=== PATIENT | male | born 1960 | race Caucasian/White ===

== ENCOUNTER 2023-12-22 18:14 | Inpatient (IN) | payer OTHER, MEDICAID ==
[2023-12-21] MEDS: NOREPINEPHRINE BITARTRATE 4 MG in NS 246 ML IV ONE (21:00)
[~2023-12-22] VITALS: Ht 170.2 cm; Wt 58.3 kg
[2023-12-22 18:15] VITALS: BP_SYST 0; PULSE 0; RESP 0; TEMP 97.1; O2SAT 0
[2023-12-22 18:56] LABS: BASOPHILS # (AUTO) 0.3 K/uL (0.0-0.2); BASOPHILS % (AUTO) 0.9 % (0.0-2.0); EOSINOPHILS # (AUTO) 0.2 K/uL (0.0-0.4); EOSINOPHILS % (AUTO) 0.5 % (0.0-4.0); HEMATOCRIT 43.6 % (36-54); HEMOGLOBIN 14.3 g/dL (14.0-18.0); LYMPHOCYTES # (AUTO) 5.1 K/uL (1.0-5.5); LYMPHOCYTES % (AUTO) 17.9 % (20.5-51.5); MEAN CORPUSCULAR HEMOGLOBIN 31 pg (27-31); MEAN CORPUSCULAR HGB CONC 33 % (32-36); MEAN CORPUSCULAR VOLUME 94 fL (79.0-98.0); MONOCYTES # (AUTO) 0.7 K/uL (0.0-1.0); MONOCYTES % (AUTO) 2.6 % (1.7-9.3); NEUTROPHILS # (AUTO) 22.1 K/uL (1.8-7.7); NEUTROPHILS % (AUTO) 78.1 % (40.0-70.0); PLATELET COUNT (AUTO) 344 K/uL (130-430); RED BLOOD CELL COUNT(AUTO) 4.63 MIL/uL (4.2-6.2); RED CELL DISTRIBUTION WIDTH 13.3 % (9.0-15.0); WHITE BLOOD COUNT (AUTO) 28.4 K/uL (4.8-10.8)
[2023-12-22] MEDS: NACL 0.9% 1,000 ML IV ONE (18:59)
[2023-12-22] MEDS: SODIUM BICARBONATE 0.5 MEQ/ML VIAL INJ ONE (18:59)
[2023-12-22] MEDS ORDERED: NOREPINEPHRINE BITARTRATE 4 MG in NS 246 ML IV ONE (19:00)
[2023-12-22 19:16] LABS: ALANINE AMINOTRANSFERASE 159 U/L (12-78); ALBUMIN 2.1 g/dL (3.4-4.8); ANION GAP 19 (5-15); ASPARTATE AMINOTRANSFERASE 247 U/L (10-37); CALCIUM 11.5 mg/dL (8.4-11.0); CARBON DIOXIDE 22 mmol/L (23-29); CHLORIDE 110 mmol/L (98-107); CREATININE 0.66 mg/dL (0.55-1.30); GFR AFRICAN AMERICAN 157 mL/min (>90); GFR NON AFRICAN-AMERICAN 130 mL/min (>90); GLUCOSE 126 mg/dL (74-106); POTASSIUM 3.3 mmol/L (3.5-5.1); SODIUM SERUM 151 mmol/L (136-145); TOTAL BILIRUBIN 1.4 mg/dL (0.0-1.0); TOTAL PROTEIN, SERUM 6.5 g/dL (6.4-8.3); UREA NITROGEN, BLOOD 27 mg/dL (8-21)
[2023-12-22] MEDS ORDERED: NOREPINEPHRINE 4 MG/4 ML VIAL IV ONE (19:29)
[2023-12-22 19:31] LABS: BILIRUBIN,DIRECT 0.9 mg/dL (0.0-0.3); LIPASE 24 U/L (16-77)
[2023-12-22] MEDS ORDERED: SODIUM BICARBONATE 8.4% JECT 50 MEQ/50 ML SYRINGE ONE (20:00)
[2023-12-22] MEDS ORDERED: EPINEPHrine JECT 0.1 MG/ML SYR ONE (20:00)
[2023-12-22] MEDS ORDERED: ATROPINE SULFATE 1 MG/10 ML SYRINGE IVP ONE (20:00)
[2023-12-22 20:07] LABS: BLOOD GAS PH 7.405 (7.350-7.450)
[2023-12-22 20:08] LABS: BLOOD GAS BASE EXCESS -1.1 mmol/L (-2.0-3.0); BLOOD GAS HCO3 23.3 mmol/L (21.0-28.0)
[2023-12-22] MEDS ORDERED: MIDAZOLAM IN NACL,ISO-OSMOT/PF 100 ML IV PRN (20:15)
[2023-12-22] MEDS ORDERED: MORPHINE 2 MG/ML INJ. SYRINGE IVP PRN ×2 (20:30)
[2023-12-22] MEDS ORDERED: MUPIROCIN 2% TOPICAL OINTMENT 22 GM NS PRN (20:30)
[2023-12-22] MEDS ORDERED: MAGNESIUM SULFATE 50 ML IV PRN (20:30)
[2023-12-22] MEDS ORDERED: ONDANSETRON HCL 4 MG/2 ML VIAL IVP PRN (20:30)
[2023-12-22] MEDS ORDERED: ZOLPIDEM TARTRATE 5 MG TABLET PO PRN (20:30)
[2023-12-22] MEDS ORDERED: LORazepam 2 MG/ML VIAL IVP PRN (20:30)
[2023-12-22] MEDS ORDERED: DOCUSATE SODIUM 100 MG CAPSULE PO PRN (20:30)
[2023-12-22] MEDS ORDERED: ACETAMINOPHEN 500 MG TABLET PO PRN ×3 (20:45)
[2023-12-22 21:00] VITALS: BP_SYST 135; PULSE 118; RESP 15; TEMP 97.7; O2SAT 98
[2023-12-22 21:27] LABS: BILIRUBIN,URINE NEGATIVE (NEGATIVE); BLOOD, URINE 2+ (NEGATIVE); CLARITY/URINE CLEAR (CLEAR); COLOR,URINE YELLOW (YELLOW); GLUCOSE,URINE NEGATIVE (NEGATIVE); KETONES,URINE 2+ (NEGATIVE); LEUKOCYTE ESTERASE ,URINE NEGATIVE (NEGATIVE); NITRITE, URINE NEGATIVE (NEGATIVE); PROTEIN URINE 2+ (NEGATIVE)
[2023-12-22 22:00] VITALS: BP_SYST 117; PULSE 110; RESP 15; O2SAT 100
[2023-12-22] MEDS ORDERED: PROPOFOL DRIP 100 ML IV PRN (22:15)
[2023-12-22 22:17] LABS: BACTERIA,URINE RARE /HPF (None Seen); WBC,URINE 0-3 /HPF (0-3)
[2023-12-22] MEDS: PROPOFOL DRIP 100 ML IV ONE (22:29)
[2023-12-22 22:34] VITALS: BP_SYST 97; PULSE 111; O2SAT 98
[2023-12-22] MEDS: 0.45% NACL 1,000 ML IV SCH (22:36)
[2023-12-22 22:42] VITALS: BP_SYST 97; PULSE 111
[2023-12-22 23:00] VITALS: BP_SYST 117; RESP 15; O2SAT 97
[2023-12-23] VITALS (41 sets, daily range): BP systolic 86–117; PULSE 92–114; RESP 10–17; TEMP 96.6–101; O2SAT 94–99
[2023-12-23] MEDS: PIPERACILLIN/TAZOBACTAM 2.25 GM VIAL IV ONE (00:41)
[2023-12-23] MEDS: CLINDAMYCIN 600 mg/50mL D5W 50 ML IV ONE (00:41)
[2023-12-23] MEDS: CLINDAMYCIN PHOSPHATE 300 MG/2 ML VIAL IV ONE (02:27)
[2023-12-23] MEDS: PIPERACILLIN/TAZOBACTAM 2.25 GM in NS 50 ML IV SCH (03:00)
[2023-12-23] MEDS: HEPARIN SODIUM,PORCINE 5,000 UNITS/ML VIAL SUBCUT SCH (06:18)
[2023-12-23 06:27] LABS: BASOPHILS % (AUTO) 0.1 % (0.0-2.0); HEMOGLOBIN 12.9 g/dL (14.0-18.0); LYMPHOCYTES # (AUTO) 1.6 K/uL (1.0-5.5); LYMPHOCYTES % (AUTO) 6.7 % (20.5-51.5); MEAN CORPUSCULAR HEMOGLOBIN 31 pg (27-31); MEAN CORPUSCULAR HGB CONC 33 % (32-36); MEAN CORPUSCULAR VOLUME 92 fL (79.0-98.0); MONOCYTES # (AUTO) 0.6 K/uL (0.0-1.0); MONOCYTES % (AUTO) 2.8 % (1.7-9.3); NEUTROPHILS # (AUTO) 21.3 K/uL (1.8-7.7); NEUTROPHILS % (AUTO) 90.4 % (40.0-70.0); PLATELET COUNT (AUTO) 297 K/uL (130-430); RED BLOOD CELL COUNT(AUTO) 4.22 MIL/uL (4.2-6.2); RED CELL DISTRIBUTION WIDTH 12.9 % (9.0-15.0); WHITE BLOOD COUNT (AUTO) 23.5 K/uL (4.8-10.8)
[2023-12-23 07:11] LABS: ALBUMIN 1.8 g/dL (3.4-4.8); BILIRUBIN,DIRECT 0.8 mg/dL (0.0-0.3); CALCIUM 8.6 mg/dL (8.4-11.0); CREATININE 0.34 mg/dL (0.55-1.30); TOTAL BILIRUBIN 1.2 mg/dL (0.0-1.0); TOTAL PROTEIN, SERUM 5.6 g/dL (6.4-8.3)
[2023-12-23 07:30] LABS: POTASSIUM 2.9 mmol/L (3.5-5.1)
[2023-12-23] MEDS ORDERED: PIPERACILLIN/TAZO 4.5 GM in D5W 100 ML IV SCH (08:00)
[2023-12-23] MEDS ORDERED: D5/0.45 NS 1,000 ML IV SCH (08:00)
[2023-12-23 08:31] LABS: INR 1.3 (0.80-1.20); PROTHROMBIN TIME 14.1 SECS (9.5-12.5)
[2023-12-23 08:46] LABS: THYROID STIMULATING HORMONE 0.29 uIu/mL (0.36-3.74)
[2023-12-23] MEDS ORDERED: *HEPARIN PER PHARMACY XX PRN (10:15)
[2023-12-23] MEDS: D5/0.45 NS 1,000 ML IV SCH (11:28)
[2023-12-23] MEDS: ENOXAPARIN SODIUM 40 MG/0.4 ML SYRINGE SUBCUT SCH (11:28)
[2023-12-23] MEDS: PANTOPRAZOLE SODIUM 40 MG/VIAL (PROTONIX) IVP ONE (11:29)
[2023-12-23] MEDS: KCL 40 mEq in 100 mL (PREMIX) 100 ML IV ONE ×2 (11:30→15:04)
[2023-12-23] MEDS: NOREPINEPHRINE BITARTRATE 8 MG in NS 242 ML IV PRN (11:39)
[2023-12-23] MEDS ORDERED: HEPARIN SODIUM,PORCINE 2000 UNITS/0.4 ML BOLUS IVP PRN (11:45)
[2023-12-23] MEDS ORDERED: HEPARIN SODIUM,PORCINE 3000 UNITS/0.6 ML BOLUS IVP PRN (11:45)
[2023-12-23] MEDS: metroNIDAZOLE 250 mg/NS 50 ML IV SCH (13:39)
[2023-12-23] MEDS: PIPERACILLIN/TAZO 3.375 GM in D5W 50 ML IV SCH (15:04)
[2023-12-23] MEDS ORDERED: iohexoL 350 mgI/mL, 100 ML INFUS..BTL IV ONE (17:27)
[2023-12-23] MEDS: HEPARIN SODIUM,PORCINE 5,000 UNITS/ML VIAL IV ONE (18:13)
[2023-12-23] MEDS: HEPARIN 25,000 UNITS in 250 ML PREMIX IV PRN (18:19)
[2023-12-24] VITALS (37 sets, daily range): BP systolic 95–122; PULSE 97–126; RESP 13–17; TEMP 97.2–99.2; O2SAT 98–100
[2023-12-24 00:58] LABS: INFLUENZA TYPE A Negative (NEGATIVE); INFLUENZA TYPE B NEGATIVE (NEGATIVE)
[2023-12-24] MEDS: DOXYCYCLINE HYCLATE 100 MG TABLET PO SCH (03:00)
[2023-12-24 06:29] LABS: BASOPHILS % (AUTO) 0.1 % (0.0-2.0); HEMATOCRIT 40.2 % (36-54); HEMOGLOBIN 13.3 g/dL (14.0-18.0); LYMPHOCYTES # (AUTO) 2.1 K/uL (1.0-5.5); LYMPHOCYTES % (AUTO) 10.7 % (20.5-51.5); MEAN CORPUSCULAR HEMOGLOBIN 31 pg (27-31); MEAN CORPUSCULAR HGB CONC 33 % (32-36); MEAN CORPUSCULAR VOLUME 92 fL (79.0-98.0); MONOCYTES # (AUTO) 0.8 K/uL (0.0-1.0); MONOCYTES % (AUTO) 4.3 % (1.7-9.3); NEUTROPHILS # (AUTO) 16.5 K/uL (1.8-7.7); NEUTROPHILS % (AUTO) 84.9 % (40.0-70.0); PLATELET COUNT (AUTO) 258 K/uL (130-430); RED BLOOD CELL COUNT(AUTO) 4.36 MIL/uL (4.2-6.2); RED CELL DISTRIBUTION WIDTH 13.6 % (9.0-15.0); WHITE BLOOD COUNT (AUTO) 19.5 K/uL (4.8-10.8)
[2023-12-24 06:33] LABS: ALBUMIN 1.8 g/dL (3.4-4.8); BILIRUBIN,DIRECT 0.5 mg/dL (0.0-0.3); CALCIUM 8.4 mg/dL (8.4-11.0); CREATININE 0.36 mg/dL (0.55-1.30); POTASSIUM 3.4 mmol/L (3.5-5.1); TOTAL BILIRUBIN 0.8 mg/dL (0.0-1.0); TOTAL PROTEIN, SERUM 5.8 g/dL (6.4-8.3)
[2023-12-24 07:07] LABS: HEPATITIS A AB, IgM Negative (Negative); HEPATITIS B CORE AB, IgM Negative (Negative); HEPATITIS B SURFACE AG Negative (Negative); HEPATITIS C VIRUS AB Non Reactive (Non Reactive)
[2023-12-24] MEDS: PEG 400/HYPROMELLOSE/GLYCERIN 15 ML DROPS OP SCH (08:53)
[2023-12-24] MEDS: PANTOPRAZOLE SODIUM 40 MG/VIAL (PROTONIX) IVP SCH (08:54)
[2023-12-24] MEDS: NS 500 ML IV ONE (09:00)
[2023-12-25] VITALS (36 sets, daily range): BP systolic 99–115; PULSE 64–96; RESP 15–18; TEMP 97.2–98.6; O2SAT 97–100
[2023-12-25 06:57] LABS: BASOPHILS % (AUTO) 0.1 % (0.0-2.0); EOSINOPHILS # (AUTO) 0.1 K/uL (0.0-0.4); EOSINOPHILS % (AUTO) 0.5 % (0.0-4.0); HEMATOCRIT 35.7 % (36-54); HEMOGLOBIN 11.6 g/dL (14.0-18.0); LYMPHOCYTES # (AUTO) 1.6 K/uL (1.0-5.5); LYMPHOCYTES % (AUTO) 12.3 % (20.5-51.5); MEAN CORPUSCULAR HEMOGLOBIN 30 pg (27-31); MEAN CORPUSCULAR HGB CONC 33 % (32-36); MEAN CORPUSCULAR VOLUME 92 fL (79.0-98.0); MONOCYTES # (AUTO) 0.5 K/uL (0.0-1.0); MONOCYTES % (AUTO) 3.8 % (1.7-9.3); NEUTROPHILS % (AUTO) 83.3 % (40.0-70.0); PLATELET COUNT (AUTO) 223 K/uL (130-430); RED BLOOD CELL COUNT(AUTO) 3.87 MIL/uL (4.2-6.2); RED CELL DISTRIBUTION WIDTH 13.3 % (9.0-15.0); WHITE BLOOD COUNT (AUTO) 13.2 K/uL (4.8-10.8)
[2023-12-25 07:01] LABS: ALBUMIN 1.6 g/dL (3.4-4.8); BILIRUBIN,DIRECT 0.4 mg/dL (0.0-0.3); CALCIUM 7.6 mg/dL (8.4-11.0); CREATININE 0.29 mg/dL (0.55-1.30); TOTAL BILIRUBIN 0.8 mg/dL (0.0-1.0); TOTAL PROTEIN, SERUM 5.2 g/dL (6.4-8.3)
[2023-12-25 08:14] LABS: POTASSIUM 2.6 mmol/L (3.5-5.1)
[2023-12-25] MEDS: POTASSIUM CHLORIDE 20 MEQ TABLET.ER PO PRN (09:18)
[2023-12-25] MEDS: BALSAM PERU/CASTOR OIL 56.7 GM OINT...G. TP SCH (09:18)
[2023-12-26] VITALS (36 sets, daily range): BP systolic 97–127; PULSE 63–77; RESP 15–18; TEMP 97.5–98.9; O2SAT 97–100
[2023-12-26 06:09] LABS: BASOPHILS % (AUTO) 0.1 % (0.0-2.0); EOSINOPHILS # (AUTO) 0.3 K/uL (0.0-0.4); EOSINOPHILS % (AUTO) 2.5 % (0.0-4.0); HEMATOCRIT 36.4 % (36-54); LYMPHOCYTES # (AUTO) 2.2 K/uL (1.0-5.5); LYMPHOCYTES % (AUTO) 19.1 % (20.5-51.5); MEAN CORPUSCULAR HEMOGLOBIN 30 pg (27-31); MEAN CORPUSCULAR HGB CONC 33 % (32-36); MEAN CORPUSCULAR VOLUME 92 fL (79.0-98.0); MONOCYTES # (AUTO) 0.7 K/uL (0.0-1.0); MONOCYTES % (AUTO) 6.2 % (1.7-9.3); NEUTROPHILS # (AUTO) 8.3 K/uL (1.8-7.7); NEUTROPHILS % (AUTO) 72.1 % (40.0-70.0); PLATELET COUNT (AUTO) 210 K/uL (130-430); RED BLOOD CELL COUNT(AUTO) 3.98 MIL/uL (4.2-6.2); RED CELL DISTRIBUTION WIDTH 13.3 % (9.0-15.0); WHITE BLOOD COUNT (AUTO) 11.6 K/uL (4.8-10.8)
[2023-12-26 06:12] LABS: CALCIUM 7.4 mg/dL (8.4-11.0); CREATININE 0.35 mg/dL (0.55-1.30)
[2023-12-26] MEDS: POTASSIUM CHLORIDE 40 MEQ in 0.45% NS 250 ML IV ONE (11:59)
[2023-12-26] MEDS: APIXABAN 2.5 MG TABLET NG SCH (22:22)
[2023-12-27] VITALS (23 sets, daily range): BP systolic 116–201; PULSE 63–102; RESP 15–22; TEMP 97–98.4; O2SAT 86–100
[2023-12-27 06:04] LABS: BASOPHILS % (AUTO) 0.1 % (0.0-2.0); EOSINOPHILS # (AUTO) 0.3 K/uL (0.0-0.4); EOSINOPHILS % (AUTO) 2.2 % (0.0-4.0); HEMATOCRIT 37.3 % (36-54); HEMOGLOBIN 12.5 g/dL (14.0-18.0); LYMPHOCYTES # (AUTO) 2.2 K/uL (1.0-5.5); LYMPHOCYTES % (AUTO) 17.5 % (20.5-51.5); MEAN CORPUSCULAR HEMOGLOBIN 31 pg (27-31); MEAN CORPUSCULAR HGB CONC 33 % (32-36); MEAN CORPUSCULAR VOLUME 92 fL (79.0-98.0); MONOCYTES # (AUTO) 0.9 K/uL (0.0-1.0); MONOCYTES % (AUTO) 7.2 % (1.7-9.3); NEUTROPHILS # (AUTO) 9.2 K/uL (1.8-7.7); PLATELET COUNT (AUTO) 218 K/uL (130-430); RED BLOOD CELL COUNT(AUTO) 4.06 MIL/uL (4.2-6.2); RED CELL DISTRIBUTION WIDTH 13.4 % (9.0-15.0); WHITE BLOOD COUNT (AUTO) 12.6 K/uL (4.8-10.8)
[2023-12-27 06:06] LABS: CALCIUM 7.8 mg/dL (8.4-11.0); CREATININE 0.3 mg/dL (0.55-1.30); POTASSIUM 3.8 mmol/L (3.5-5.1)
[2023-12-27] MEDS ORDERED: MORPHINE SULFATE IN 0.9 % NACL 100 ML IV PRN ×2 (11:45→12:15)
[2023-12-27] MEDS: MORPHINE SULFATE IN 0.9 % NACL 100 ML IV PRN (14:03)
== END 2023-12-27 16:15 | DRG 870 ==
LOC: EDBD 18:14 → SED 18:14 → SIC 20:23
PROVIDERS: ADMIT General Practice; ATTEND General Practice
PROC: 5A1955Z Respiratory Ventilation, Greater than 96 Consecutive Hours (ICD-10-PCS; principal; 2023-12-22)
PROC: 0BH17EZ Insertion of Endotracheal Airway into Trachea, Via Natural or Artificial Opening (ICD-10-PCS; 2023-12-22)
PROC: 5A12012 Performance of Cardiac Output, Single, Manual (ICD-10-PCS; 2023-12-22)
PROC: 02HV33Z Insertion of Infusion Device into Superior Vena Cava, Percutaneous Approach (ICD-10-PCS; 2023-12-22)
PROC: B548ZZA Ultrasonography of Superior Vena Cava, Guidance (ICD-10-PCS; 2023-12-22)
PROC: 4A00X4Z Measurement of Central Nervous Electrical Activity, External Approach (ICD-10-PCS; 2023-12-23)
DX: A41.9 Sepsis, unspecified organism (principal); I21.4 Non-ST elevation (NSTEMI) myocardial infarction; J69.0 Pneumonitis due to inhalation of food and vomit; R65.21 Severe sepsis with septic shock; J96.20 Acute and chronic respiratory failure, unspecified whether with hypoxia or hypercapnia; G93.1 Anoxic brain damage, not elsewhere classified; G12.21 Amyotrophic lateral sclerosis; E87.0 Hyperosmolality and hypernatremia; E44.0 Moderate protein-calorie malnutrition; N39.0 Urinary tract infection, site not specified; I46.9 Cardiac arrest, cause unspecified; Z20.822 Contact with and (suspected) exposure to COVID-19; E80.6 Other disorders of bilirubin metabolism; E87.6 Hypokalemia; D64.9 Anemia, unspecified; I45.10 Unspecified right bundle-branch block; Z99.81 Dependence on supplemental oxygen; Z99.3 Dependence on wheelchair; Z74.01 Bed confinement status; Z79.899 Other long term (current) drug therapy; Z88.8 Allergy status to other drugs, medicaments and biological substances; R26.9 Unspecified abnormalities of gait and mobility; Z68.20 Body mass index [BMI] 20.0-20.9, adult
CPT/HCPCS: 36415; 36600; 71045; 71275; 76700; 80048; 80053; 80061; 80074; 80076; 81000; 81001; 81015; 82803; 83037; 83690; 83735; 83880; 84443; 84484; 85025; 85379; 85610; 85730; 87040; 87070; 87081; 87086; 87186; 87205; 92950; 93005; 93306; 93970; 94002; 94003; 94070; 94640; 95824; 99291; J0171; J0461; J1644; J1650; J1956; J2270; J2470; J2543; J2704; J3480; J3490; J7050; J7060; Q9967